=== PATIENT | male | born 1995 | race Caucasian/White ===

== ENCOUNTER 2020-08-14 17:04 | Emergency (ER) | payer BC, OTHER ==
[2020-08-14 17:21] VITALS: RESP 18; TEMP 98.2
[2020-08-14] MEDS ORDERED: PANTOPRAZOLE 40 MG/10 ML VIAL IVP STA (17:34)
[2020-08-14] MEDS ORDERED: SODIUM CHLORIDE 0.9% 1,000 ML IV STA (17:34)
--- NOTE | 2020-08-14 17:41 | ED ---
Abdominal Pain HPI - General Chief Complaint: Abdominal Pain Stated Complaint: Abd pain Time Seen by Provider: 08/14/20 17:24 Source: patient Mode of arrival: ambulatory Limitations: no limitations - History of Present Illness Initial Comments: Patient is a 24-year-old male presenting to emergency Department with a chief complaint of abdominal pain. She states this issue has been ongoing for the past several months although he has not been unable to see a primary care physician for insurance purposes. Patient states typically has pain in the left upper quadrant region and it happens after eating food. Patient reports she almost immediately developed diarrhea. Patient states she gradually stopping eating gluten and dairy which has somewhat improve his symptoms although they have not completely resolved. He states that he was drinking about 6-7 beers per day but has cut down drastically about 2 months ago. States he now has approximately one beer per day. States he does drink 1-2 and drinks per day but not a lot of coffee. He denies previous abdominal surgeries. Denies taking medication to alleviate the symptoms. Denies any night sweats or chills. Denies any chest pain, back pain or shortness of breath. Denies hematuria, chilo tochezia or melena. - Related Data Previous Rx's Medication Instructions Recorded Cyclobenzaprine [Flexeril] 10 mg PO TID #20 tablet 07/02/16 Naproxen [Naprosyn] 500 mg PO Q12HR #24 tab 07/02/16 Omeprazole [PriLOSEC] 20 mg PO AC-BRKFST #14 cap 08/14/20 Allergies Allergy/AdvReac Type Severity Reaction Status Date / Time No Known Allergies Allergy Verified 08/14/20 17:22 Review of Systems ROS Statement: Those systems with pertinent positive or pertinent negative responses have been documented in the HPI. ROS Other: All systems not noted in ROS Statement are negative. Past Medical History Past Medical History: No Reported History History of Any Multi-Drug Resistant Organisms: None Reported Past Surgical History: No Surgical Hx Reported Past Psychological History: No Psychological Hx Reported Smoking Status: Vaper Past Alcohol Use History: Occasional Past Drug Use History: Marijuana General Exam Limitations: no limitations General appearance: alert, in no apparent distress Head exam: Present: atraumatic, normocephalic, normal inspection Eye exam: Present: normal appearance, PERRL, EOMI Pupils: Present: normal accommodation ENT exam: Present: normal exam, normal oropharynx, mucous membranes moist, TM's normal bilaterally, normal external ear exam Neck exam: Present: normal inspection, full ROM. Absent: tenderness Respiratory exam: Present: normal lung sounds bilaterally. Absent: respiratory distress, wheezes, rales Cardiovascular Exam: Present: regular rate, normal rhythm, normal heart sounds GI/Abdominal exam: Present: soft, tenderness (Left upper quadrant and mild epigastric.), normal bowel sounds. Absent: distended, guarding, rebound, rigid exam: Present: circumcision. Absent: testicular tenderness, urethral discharge, scrotal swelling Extremities exam: Present: normal inspection, full ROM, normal capillary refill. Absent: tenderness Back exam: Present: normal inspection, full ROM. Absent: tenderness, CVA tenderness (R), CVA tenderness (L) Neurological exam: Present: alert, oriented X3, normal gait Psychiatric exam: Present: normal affect, normal mood Skin exam: Present: warm, dry, intact, normal color Course Vital Signs 08/14/20 17:17 Temperature 98.2 F Pulse Rate 79 Respiratory 18 Rate Blood Pressure 129/100 O2 Sat by Pulse 98 Oximetry Medical Decision Making - Medical Decision Making Patient is a 24-year-old male presenting to the emergency room with a chief complaint abdominal pain. Physical examination, patient appears to have left upper quadrant tenderness to palpation. I suspect the patient has gastritis or possible gastric ulcer. He does have history of recent alcohol abuse along with heavy use of energy drinks. The pain seems to be postprandial left upper quadrant suggesting peptic ulcer more likely then duodenal ulcer. Patient was started on Protonix in the ED. Our evaluation, patient does improve symptomatically. He will be discharged with a 15 day course of omeprazole. Meanwhile, he was advised to follow-up with his primary care physician and a GI specialist. He was advised to completely stop any alcoholic beverages or energy drinks. He was also advised to stop using any acidic foods, coffee or possible. CBC CMP and UA are unremarkable. Strict return parameters were thoroughly discussed the patient was understanding and agreeable. Case discussed with physician. - Lab Data Result diagrams: 08/14/20 17:36 08/14/20 17:36 Lab Results 08/14/20 08/14/20 08/14/20 Range/Units 17:36 17:36 17:36 WBC 8.5 (3.8-10.6) k/uL RBC 5.37 (4.30-5.90) m/uL Hgb 16.3 (13.0-17.5) gm/dL Hct 49.6 (39.0-53.0) % MCV 92.3 (80.0-100.0) fL MCH 30.4 (25.0-35.0) pg MCHC 32.9 (31.0-37.0) g/dL RDW 11.3 L (11.5-15.5) % Plt Count 238 (150-450) k/uL Neutrophils % 59 % Lymphocytes % 33 % Monocytes % 5 % Eosinophils % 1 % Basophils % 1 % Neutrophils # 5.0 (1.3-7.7) k/uL Lymphocytes # 2.8 (1.0-4.8) k/uL Monocytes # 0.4 (0-1.0) k/uL Eosinophils # 0.1 (0-0.7) k/uL Basophils # 0.1 (0-0.2) k/uL Sodium 138 (137-145) mmol/L Potassium 4.5 (3.5-5.1) mmol/L Chloride 104 (98-107) mmol/L Carbon Dioxide 25 (22-30) mmol/L Anion Gap 9 mmol/L BUN 8 L (9-20) mg/dL Creatinine 0.90 (0.66-1.25) mg/dL Est GFR (CKD-EPI)AfAm >90 (>60 ml/min/1.73 sqM) Est GFR (CKD-EPI)NonAf >90 (>60 ml/min/1.73 sqM) Glucose 94 (74-99) mg/dL Calcium 9.8 (8.4-10.2) mg/dL Total Bilirubin 1.0 (0.2-1.3) mg/dL AST 30 (17-59) U/L ALT 20 (4-49) U/L Alkaline Phosphatase 60 (38-126) U/L Total Protein 7.9 (6.3-8.2) g/dL Albumin 4.9 (3.5-5.0) g/dL Lipase 167 (23-300) U/L Urine Color Yellow Urine Appearance Clear (Clear) Urine pH 6.5 (5.0-8.0) Ur Specific [place] 1.012 (1.001-1.035) Urine Protein Negative (Negative) Urine Glucose (UA) Negative (Negative) Urine Ketones Negative (Negative) Urine Blood Negative (Negative) Urine Nitrite Negative (Negative) Urine Bilirubin Negative (Negative) Urine Urobilinogen <2.0 (<2.0) mg/dL Ur Leukocyte Esterase Negative (Negative) Disposition Clinical Impression: Abdominal pain Disposition: HOME SELF-CARE Condition: Stable Instructions (If sedation given, give patient instructions): Peptic Ulcer (ED), Gastritis (DC), Diet for Stomach Ulcers and Gastritis (ED) Additional Instructions: Follow with a GI specialist. Did not take NSAID medication. Follow the proper diet. Return to emergency department if symptoms worsen. Take prescribed medication as directed. Prescriptions: Omeprazole [PriLOSEC] 20 mg PO AC-BRKFST #14 cap Is patient prescribed a controlled substance at d/c from ED?: No Referrals: Modesto Vieira [STAFF PHYSICIAN] - 1-2 days Luis Car MD [STAFF PHYSICIAN] - 1-2 days Time of Disposition: 18:42
[2020-08-14 17:48] LABS: Basophils # (A) 0.1 k/uL (0-0.2); Basophils % (A) 1 %; Eosinophils # (A) 0.1 k/uL (0-0.7); Eosinophils % (A) 1 %; HCT 49.6 % (39.0-53.0); HGB 16.3 gm/dL (13.0-17.5); Lymphocytes # (A) 2.8 k/uL (1.0-4.8); Lymphocytes % (A) 33 %; MCH 30.4 pg (25.0-35.0); MCHC 32.9 g/dL (31.0-37.0); MCV 92.3 fL (80.0-100.0); Monocytes # (A) 0.4 k/uL (0-1.0); Monocytes % (A) 5 %; Neutrophils % (A) 59 %; Platelet Count 238 k/uL (150-450); RBC 5.37 m/uL (4.30-5.90); RDW 11.3 % (11.5-15.5); WBC 8.5 k/uL (3.8-10.6)
[2020-08-14 17:55] LABS: Appearance,Urine Clear (Clear); Bilirubin,Urine Negative (Negative); Blood,Urine Negative (Negative); Color,Urine Yellow; Glucose,Urine (UA) Negative (Negative); Ketones,Urine Negative (Negative); Leukocyte Esterase,Urine Negative (Negative); Nitrite,Urine Negative (Negative); PH, Urine 6.5 (5.0-8.0); Protein,Urine Negative (Negative); Specific Gravity,Urine 1.012 (1.001-1.035); Urobilinogen,Urine <2.0 mg/dL (<2.0)
[2020-08-14 17:59] LABS: ALT 20 U/L (4-49); AST 30 U/L (17-59); African American GFR (CKD) >90 (>60 ml/min/1.73 sqM); Albumin 4.9 g/dL (3.5-5.0); Alkaline Phosphatase 60 U/L (38-126); Anion Gap 9 mmol/L; Blood Urea Nitrogen 8 mg/dL (9-20); Calcium 9.8 mg/dL (8.4-10.2); Carbon Dioxide 25 mmol/L (22-30); Chloride 104 mmol/L (98-107); Glucose 94 mg/dL (74-99); Non-African American GFR(CKD) >90 (>60 ml/min/1.73 sqM); Sodium 138 mmol/L (137-145); Total Protein 7.9 g/dL (6.3-8.2)
[2020-08-14 18:00] LABS: Potassium 4.5 mmol/L (3.5-5.1)
[2020-08-14 19:02] VITALS: BP 123/72; PULSE 60
== END 2020-08-14 19:02 | disposition home or self-care (01) ==
LOC: EC 17:04
DX: R10.12 Left upper quadrant pain (principal); R10.812 Left upper quadrant abdominal tenderness; R10.816 Epigastric abdominal tenderness; F17.290 Nicotine dependence, other tobacco product, uncomplicated
CPT/HCPCS: 36415; 80053; 83690; 85025; 81003; 99284; 96374; 96361; C9113

== ENCOUNTER 2021-08-12 14:52 | Emergency (ER) | payer OTHER ==
[2021-08-12 15:01] VITALS: BP 122/77; PULSE 67; RESP 16; TEMP 98.5
[2021-08-12] MEDS ORDERED: KETOROLAC 15 MG/ML 1 ML VIAL IM STA (15:29)
--- NOTE | 2021-08-12 16:06 | XR ---
EXAMINATION TYPE: XR foot complete bilateral DATE OF EXAM: 08/12/2021 COMPARISON: NONE HISTORY: Heel pain TECHNIQUE: 6 views FINDINGS: Metatarsals are intact. I see no fracture nor dislocation. Left and right calcaneus appear normal. Subtalar joints appear normal. IMPRESSION: No fracture seen. No evidence of calcaneus fracture.
--- NOTE | 2021-08-12 16:15 | ED ---
Lower Extremity Injury HPI - General Chief Complaint: Extremity Injury, Lower Stated Complaint: bilat heel pain Time Seen by Provider: 08/12/21 15:20 Source: patient, RN notes reviewed Mode of arrival: ambulatory Limitations: no limitations - History of Present Illness Initial Comments: Patient is a 25-year-old male that presents to the emergency department complaining of bilateral heel pain patient states that he was throwing a fit inside of his house when he jumped up in the air and then slammed both feet on the ground. Patient notes that he immediately had pain to his heel/posterior ankle. He denied any decreased sensation. He did note decreased range of motion secondary to pain. Patient was otherwise a well-appearing 25-year-old male in no apparent distress. He denied any chest pain shortness of breath headache nausea vomiting diarrhea constipation fever fatigue chills. - Related Data Previous Rx's Medication Instructions Recorded Cyclobenzaprine [Flexeril] 10 mg PO TID #20 tablet 07/02/16 Naproxen [Naprosyn] 500 mg PO Q12HR #24 tab 07/02/16 Omeprazole [PriLOSEC] 20 mg PO AC-BRKFST #14 cap 08/14/20 Allergies Allergy/AdvReac Type Severity Reaction Status Date / Time No Known Allergies Allergy Verified 08/12/21 14:57 Review of Systems ROS Statement: Those systems with pertinent positive or pertinent negative responses have been documented in the HPI. ROS Other: All systems not noted in ROS Statement are negative. Past Medical History Past Medical History: No Reported History History of Any Multi-Drug Resistant Organisms: None Reported Past Surgical History: No Surgical Hx Reported Additional Past Surgical History / Comment(s): eye 2005, 2012 Past Psychological History: No Psychological Hx Reported Smoking Status: Vaper Past Alcohol Use History: None Reported Past Drug Use History: Marijuana General Exam Limitations: no limitations General appearance: alert, in no apparent distress Head exam: Present: atraumatic, normocephalic, normal inspection Eye exam: Present: normal appearance, PERRL, EOMI. Absent: scleral icterus, conjunctival injection, periorbital swelling ENT exam: Present: normal exam, mucous membranes moist Neck exam: Present: normal inspection Respiratory exam: Present: normal lung sounds bilaterally. Absent: respiratory distress, wheezes, rales, rhonchi, stridor Cardiovascular Exam: Present: regular rate, normal rhythm, normal heart sounds. Absent: systolic murmur, diastolic murmur, rubs, gallop, clicks Extremities exam: Present: normal inspection, full ROM, normal capillary refill, other (Tenderness to bilateral heels. Minimal tenderness to the Achilles.). Absent: tenderness, pedal edema, joint swelling, calf tenderness Neurological exam: Present: alert, oriented X3 Psychiatric exam: Present: normal affect, normal mood Skin exam: Present: warm, dry, intact, normal color. Absent: rash Course Vital Signs 08/12/21 14:57 Temperature 98.5 F Pulse Rate 67 Respiratory 16 Rate Blood Pressure 122/77 O2 Sat by Pulse 99 Oximetry Medical Decision Making - Medical Decision Making 25-year-old male complaining of bilateral foot pain after jumping there is both feel the ground. X-ray of the bilateral feet, 15 g Toradol ordered. X-rays negative for any acute fractures or dislocations. Patient most likely has of bilateral ankle sprain. Case discussed with Dr. Sullivan patient can discharge home. - Radiology Data Radiology results: report reviewed, image reviewed Bilateral foot x-ray: No fracture seen. No evidence of calcaneus fracture. Disposition Clinical Impression: Left ankle sprain, Right ankle sprain, Achilles tendinitis of both lower extremities Disposition: HOME SELF-CARE Condition: Stable Instructions (If sedation given, give patient instructions): Knee Sprain (ED) Additional Instructions: Please return to the Emergency Department if symptoms worsen or any other concerns. Follow-up with primary care 1-2 days. Take Tylenol Motrin as needed. Rest ice compress elevate. Is patient prescribed a controlled substance at d/c from ED?: No Referrals: None,Stated [Primary Care Provider] - 1-2 days Keenan Castañeda PAC [PHYSICIAN GENERATOR MAN] - 1-2 days Time of Disposition: 16:15
== END 2021-08-12 16:35 | disposition home or self-care (01) ==
LOC: EC 14:52
DX: S93.402A Sprain of unspecified ligament of left ankle, initial encounter (principal); S93.401A Sprain of unspecified ligament of right ankle, initial encounter; M76.62 Achilles tendinitis, left leg; M76.61 Achilles tendinitis, right leg; F17.290 Nicotine dependence, other tobacco product, uncomplicated; W23.1XXA Caught, crushed, jammed, or pinched between stationary objects, initial encounter; Y93.39 Activity, other involving climbing, rappelling and jumping off; Y92.009 Unspecified place in unspecified non-institutional (private) residence as the place of occurrence of the external cause
CPT/HCPCS: 73630; 99283; 96372; J1885